=== PATIENT | male | born 2000 | race Caucasian/White ===

== ENCOUNTER → 2022-03-19 | Outpatient (CLI) | payer BC ==
--- NOTE | 2022-03-19 17:07 | CARD ---
MR#: [id number] Date of Study: 03/19/2022 Ordering Physician: ASHLEY PAUL, Referring Physician: ASHLEY PAUL Tech: Shonda Sal [facility] APPROVED REPORT EXAM: Two-dimensional and M-mode echocardiogram with Doppler and color Doppler. Other Information Quality : AverageHR: 74bpm Rhythm : NSR INDICATION Palpitations 2D DIMENSIONS RVDd3.3 (2.9-3.5cm)Left Atrium(2D)3.0 (1.6-4.0cm) IVSd0.8 (0.7-1.1cm)Aortic Root(2D)2.6 (2.0-3.7cm) LVDd4.2 (3.9-5.9cm)LVOT Diameter2.0 (1.8-2.4cm) PWd1.1 (0.7-1.1cm)LVDs2.8 (2.5-4.0cm) FS (%) 33.5 %SV50.5 ml Aortic Valve AoV Peak Vamsi.130.9cm/sAoV VTI28.1cm AO Peak GR.6.9mmHgLVOT Peak Vamsi.110.9cm/s AO Mean GR.4mmHgAVA (VMAX)2.74cm2 Mitral Valve MV E Pgumbeyh60.5cm/sMV DECEL [id number] MV A Istddzke29.4cm/sE/A Ratio1.9 Pulmonary Valve PV Peak Zlrqzcmu751.7cm/s LEFT VENTRICLE The left ventricle is normal size. There is normal left ventricular wall thickness. The left ventricu lar systolic function is normal and the ejection fraction is within normal range. Left ventricular ej ection fraction of 50-55%. There is normal LV segmental wall motion. The left ventricular diastolic f unction and filling is normal for age. RIGHT VENTRICLE The right ventricle is normal size. There is normal right ventricular wall thickness. The right ventr icular systolic function is normal. ATRIA The left atrium size is normal. The right atrium size is normal. The interatrial septum is intact wit h no evidence for an atrial septal defect or patent foramen ovale as noted on 2-D or Doppler imaging. AORTIC VALVE The aortic valve is normal in structure and function. Doppler and Color Flow revealed no significant aortic regurgitation. There is no significant aortic valvular stenosis. MITRAL VALVE The mitral valve is normal in structure and function. There is no evidence of mitral valve prolapse. There is no mitral valve stenosis. Doppler and Color Flow revealed no mitral valve regurgitation note d. TRICUSPID VALVE The tricuspid valve is normal in structure and function. Doppler and Color Flow revealed no tricuspid valve regurgitation noted. There is no tricuspid valve stenosis. PULMONIC VALVE The pulmonary valve is normal in structure and function. Doppler and Color Flow revealed trace pulmon ic valvular regurgitation. GREAT VESSELS The aortic root is normal in size. The ascending aorta is normal in size. The IVC is normal in size a nd collapses >50% with inspiration. PERICARDIAL EFFUSION There is no evidence of significant pericardial effusion. Critical Notification Critical Value: No <Conclusion> The left ventricle is normal size. The left ventricular systolic function is normal and the ejection fraction is within normal range. Left ventricular ejection fraction of 50-55%. Doppler and Color Flow revealed no significant aortic regurgitation. There is no significant aortic valvular stenosis. Doppler and Color Flow revealed no mitral valve regurgitation noted. Doppler and Color Flow revealed no tricuspid valve regurgitation noted. Signed by : Bubba Putnam MD Electronically Approved : 03/19/2022 17:07:41
== END ==
LOC: ECHO 09:58
PROVIDERS: ATTEND Student in an Organized Health Care Education/Training Program
DX: R94.31 Abnormal electrocardiogram [ECG] [EKG] (principal); R00.2 Palpitations
CPT/HCPCS: 93306; C8929